=== PATIENT | male | born 1965 | race Caucasian/White ===

== ENCOUNTER 2019-06-04 11:38 | Emergency (ER) | payer MEDICAID ==
[~2019-06-04] VITALS: Ht 177.8 cm; Wt 115.0 kg
[~2019-06-04 11:38] MED LIST: RANI-366 PO
[2019-06-04 11:54] VITALS: BP 142/88
== END 2019-06-04 14:35 | disposition home or self-care (01) ==
LOC: ER 11:39
DX: S30.0XXA Contusion of lower back and pelvis, initial encounter (principal); M53.3 Sacrococcygeal disorders, not elsewhere classified; J44.9 Chronic obstructive pulmonary disease, unspecified; F41.9 Anxiety disorder, unspecified; F10.99 Alcohol use, unspecified with unspecified alcohol-induced disorder; F12.90 Cannabis use, unspecified, uncomplicated; Z90.49 Acquired absence of other specified parts of digestive tract; Z79.899 Other long term (current) drug therapy; V00.311A Fall from snowboard, initial encounter; Y93.23 Activity, snow (alpine) (downhill) skiing, snowboarding, sledding, tobogganing and snow tubing; Y92.89 Other specified places as the place of occurrence of the external cause; Y99.8 Other external cause status; Y90.9 Presence of alcohol in blood, level not specified
CPT/HCPCS: 72220; 99284

== ENCOUNTER 2019-06-19 15:20 | Emergency (ER) | payer MEDICAID ==
[~2019-06-19] VITALS: Ht 177.8 cm; Wt 106.3 kg
[~2019-06-19 15:20] MED LIST changes: +LIDOcaine 1% W/epiNEPHrine 1:100,000 20ml vial ONE
[2019-06-19 15:41] VITALS: BP 138/99
== END 2019-06-19 17:27 | disposition home or self-care (01) ==
LOC: ER 15:20
DX: S61.213A Laceration without foreign body of left middle finger without damage to nail, initial encounter (principal); J44.9 Chronic obstructive pulmonary disease, unspecified; F41.9 Anxiety disorder, unspecified; F10.99 Alcohol use, unspecified with unspecified alcohol-induced disorder; F12.90 Cannabis use, unspecified, uncomplicated; Z98.890 Other specified postprocedural states; Z90.49 Acquired absence of other specified parts of digestive tract; W26.8XXA Contact with other sharp object(s), not elsewhere classified, initial encounter; Y93.89 Activity, other specified; Y92.89 Other specified places as the place of occurrence of the external cause; Y99.8 Other external cause status; Y90.9 Presence of alcohol in blood, level not specified
CPT/HCPCS: 12001; 99283

== ENCOUNTER 2020-09-16 16:12 | Emergency (ER) | payer MEDICAID ==
[~2020-09-16] VITALS: Ht 177.8 cm; Wt 85.7 kg
[~2020-09-16 16:12] MED LIST changes: -LIDOcaine 1% W/epiNEPHrine 1:100,000 20ml vial ONE
[2020-09-16 18:30] LABS: EOSINOPHILS # (AUTO) 0.8 X10'3 (0-0.9); LYMPHOCYTES # (AUTO) 2.6 X10'3 (1.1-4.8); MEAN PLATELET VOLUME 7.4 FL (7.4-10.4); MONOCYTES # (AUTO) 0.6 X10'3 (0-0.9); NEUTROPHILS # (AUTO) 3.4 X10'3 (1.8-7.7)
[2020-09-16 18:33] LABS: BASOPHILS # (AUTO) 0.1 X10'3 (0-0.2); BASOPHILS % (AUTO) 1.8 % (0-1); EOSINOPHILS % (AUTO) 10.9 % (0-6); HEMATOCRIT 44.8 % (42.0-52.0); LYMPHOCYTES % (AUTO) 35.1 % (21-51); MEAN CORPUSCULAR HEMOGLOBIN 30.1 PG (27.0-31.0); MEAN CORPUSCULAR HGB CONC 33.4 g/dL (33.0-36.5); MEAN CORPUSCULAR VOLUME 90.2 FL (78-98); MONOCYTES % (AUTO) 7.3 % (2-12); NEUTROPHILS % (AUTO) 44.9 % (42-75); PLATELET COUNT 305 X10'3 (140-440); RED BLOOD COUNT 4.96 X10'6 (4.70-6.10); RED CELL DISTRIBUTION WIDTH 13.6 % (11.5-14.5); WHITE BLOOD COUNT 7.5 X10'3 (4.5-11.0)
[2020-09-16 18:45] LABS: ALANINE AMINOTRANSFERASE 36 U/L (12-78); ALBUMIN 3.5 G/DL (3.4-5.0); ALKALINE PHOSPHATASE 77 IU/L (46-116); ANION GAP 9 (8-16); ASPARTATE AMINO TRANSFERASE 19 U/L (10-37); BILIRUBIN,TOTAL 0.2 MG/DL (0.1-1.0); BLOOD UREA NITROGEN 15 MG/DL (7-18); CHLORIDE 106 MMOL/L (99-107); CREATININE 0.88 MG/DL (0.60-1.10); GLUCOSE 94 MG/DL (70-104); POTASSIUM 3.5 MMOL/L (3.5-5.1); SODIUM 144 MMOL/L (135-145); TOTAL CARBON DIOXIDE 28.7 MMOL/L (24-32); TOTAL PROTEIN 7.1 G/DL (6.4-8.2); eGFR > 90 ML/MIN
[2020-09-16] MEDS ORDERED: predniSONE 20 mg tablet PO ONE (19:15)
[2020-09-16] MEDS ORDERED: BENZ-16 PO (20:10)
[2020-09-16] MEDS ORDERED: ALBU8HFA PO (20:10)
[2020-09-16] MEDS ORDERED: PRED20TA PO (20:10)
[2020-09-16] MEDS ORDERED: AZIT-72 PO (20:10)
[2020-09-16 20:53] VITALS: BP 124/86
== END 2020-09-16 20:34 | disposition home or self-care (01) ==
LOC: ER 16:13
DX: J20.9 Acute bronchitis, unspecified (principal); J44.9 Chronic obstructive pulmonary disease, unspecified; Z20.822 Contact with and (suspected) exposure to COVID-19; F41.9 Anxiety disorder, unspecified; F12.90 Cannabis use, unspecified, uncomplicated; Z90.49 Acquired absence of other specified parts of digestive tract; Z87.891 Personal history of nicotine dependence; Z72.89 Other problems related to lifestyle; Z79.899 Other long term (current) drug therapy
CPT/HCPCS: 36415; 71046; 80053; 83880; 85025; 87635; 93005; 99285; C9803; J7512

== ENCOUNTER 2020-09-30 15:09 | Emergency (ER) | payer MEDICAID ==
[~2020-09-30] VITALS: Ht 200.7 cm; Wt 86.8 kg
[~2020-09-30 15:09] MED LIST changes: +ALBU8HFA PO
[2020-09-30 15:20] VITALS: BP 139/91
[2020-09-30] MEDS ORDERED: ketorolac tromethamine 15mg/ml inj. IM ONE (15:55)
[2020-09-30] MEDS ORDERED: orphenadrine citrate 60mg/2ml inj. IM ONE (15:55)
[2020-09-30] MEDS ORDERED: ACET-2006 PO (16:25)
[2020-09-30] MEDS ORDERED: IBUP-1985 PO (16:25)
== END 2020-09-30 16:41 | disposition home or self-care (01) ==
LOC: ER 15:10
DX: S33.5XXA Sprain of ligaments of lumbar spine, initial encounter (principal); J44.9 Chronic obstructive pulmonary disease, unspecified; G89.29 Other chronic pain; F12.90 Cannabis use, unspecified, uncomplicated; Z87.01 Personal history of pneumonia (recurrent); Z90.49 Acquired absence of other specified parts of digestive tract; Z79.899 Other long term (current) drug therapy; Z87.448 Personal history of other diseases of urinary system; X50.9XXA Other and unspecified overexertion or strenuous movements or postures, initial encounter; Y93.89 Activity, other specified; Y92.89 Other specified places as the place of occurrence of the external cause; Y99.8 Other external cause status
CPT/HCPCS: 96372; 99284; J1885; J2360

== ENCOUNTER 2021-02-04 12:02 | Emergency (ER) | payer MEDICAID ==
[~2021-02-04] VITALS: Ht 177.8 cm; Wt 93.2 kg
[~2021-02-04 12:02] MED LIST changes: -ALBU8HFA PO; +IBUP-1985 PO
[2021-02-04 12:34] VITALS: BP 139/82
[2021-02-04] MEDS ORDERED: IBUP-1984 PO (12:37)
[2021-02-04] MEDS ORDERED: CYCL-1 PO (12:37)
== END 2021-02-04 12:50 | disposition home or self-care (01) ==
LOC: ER 12:08
DX: M54.5 Low back pain (principal); J44.9 Chronic obstructive pulmonary disease, unspecified; G89.29 Other chronic pain; F41.9 Anxiety disorder, unspecified; F12.90 Cannabis use, unspecified, uncomplicated; F19.90 Other psychoactive substance use, unspecified, uncomplicated; Z87.01 Personal history of pneumonia (recurrent); Z90.89 Acquired absence of other organs; Z90.49 Acquired absence of other specified parts of digestive tract; Z72.89 Other problems related to lifestyle; Z79.899 Other long term (current) drug therapy
CPT/HCPCS: 99283

== ENCOUNTER 2021-02-09 14:32 | Emergency (ER) | payer MEDICAID ==
[~2021-02-09] VITALS: Ht 177.8 cm; Wt 93.2 kg
[~2021-02-09 14:32] MED LIST changes: +CYCL-1 PO; +IBUP-1984 PO
--- NOTE | 2021-02-09 15:24 | NUR ---
PT AWAITING ROOM IN AMBULANCE, UNTIL ISO ROOM AVAILABLE, TRIAGE DONE NOW
[2021-02-09 15:25] VITALS: BP 141/89
[2021-02-09] MEDS ORDERED: ondansetron/PF 4mg/2ml inj IV ONE (16:05)
[2021-02-09] MEDS ORDERED: normal saline 1000ML IV soln IVB ONE (16:05)
[2021-02-09] MEDS ORDERED: acetaminophen 325mg tablet PO ONE (16:30)
[2021-02-09 17:02] LABS: BASOPHILS % (AUTO) 0.9 % (0-1); EOSINOPHILS % (AUTO) 0.1 % (0-6); HEMATOCRIT 40.7 % (42.0-52.0); HEMOGLOBIN 14.1 g/dl (14.0-17.9); LYMPHOCYTES # (AUTO) 0.6 X10'3 (1.1-4.8); LYMPHOCYTES % (AUTO) 17.8 % (21-51); MEAN CORPUSCULAR HEMOGLOBIN 30.3 PG (27.0-31.0); MEAN CORPUSCULAR HGB CONC 34.6 g/dL (33.0-36.5); MEAN CORPUSCULAR VOLUME 87.5 FL (78-98); MEAN PLATELET VOLUME 7.6 FL (7.4-10.4); MONOCYTES # (AUTO) 0.2 X10'3 (0-0.9); MONOCYTES % (AUTO) 6.1 % (2-12); NEUTROPHILS # (AUTO) 2.7 X10'3 (1.8-7.7); NEUTROPHILS % (AUTO) 75.1 % (42-75); PLATELET COUNT 179 X10'3 (140-440); RED BLOOD COUNT 4.65 X10'6 (4.70-6.10); RED CELL DISTRIBUTION WIDTH 12.6 % (11.5-14.5); WHITE BLOOD COUNT 3.6 X10'3 (4.5-11.0)
[2021-02-09 17:16] LABS: ALANINE AMINOTRANSFERASE 50 U/L (12-78); ALBUMIN 2.8 G/DL (3.4-5.0); ALBUMIN/GLOBULIN RATIO 0.8 (1.1-1.5); ALKALINE PHOSPHATASE 81 IU/L (46-116); ANION GAP 6 (8-16); ASPARTATE AMINO TRANSFERASE 48 U/L (10-37); BILIRUBIN,TOTAL 0.3 MG/DL (0.1-1.0); BLOOD UREA NITROGEN 9 MG/DL (7-18); BUN/CREATININE RATIO 9.3 (5.4-32.0); CALCIUM 7.8 MG/DL (8.5-10.1); CHLORIDE 101 MMOL/L (99-107); CREATININE 0.97 MG/DL (0.60-1.10); GLUCOSE 114 MG/DL (70-104); POTASSIUM 3.3 MMOL/L (3.5-5.1); SODIUM 138 MMOL/L (135-145); TOTAL CARBON DIOXIDE 31.2 MMOL/L (24-32); TOTAL PROTEIN 6.3 G/DL (6.4-8.2); eGFR 81 ML/MIN
[2021-02-09] MEDS ORDERED: potassium Cl 20 mEq SR tablet PO ONE (18:05)
== END 2021-02-09 19:10 | disposition home or self-care (01) ==
LOC: ER 14:32
DX: U07.1 COVID-19 (principal); J44.9 Chronic obstructive pulmonary disease, unspecified; G89.29 Other chronic pain; F41.9 Anxiety disorder, unspecified; F12.90 Cannabis use, unspecified, uncomplicated; Z90.49 Acquired absence of other specified parts of digestive tract; Z72.89 Other problems related to lifestyle; Z79.899 Other long term (current) drug therapy
CPT/HCPCS: 36415; 71045; 80053; 85025; 87635; 96361; 96374; 99284; C9803; J2405; J7030

== ENCOUNTER 2021-11-05 16:08 | Emergency (ER) | payer MEDICAID ==
[~2021-11-05] VITALS: Ht 177.8 cm; Wt 100.0 kg
[~2021-11-05 16:08] MED LIST changes: -IBUP-1984 PO
[2021-11-05 16:31] VITALS: BP 148/100
== END 2021-11-05 17:39 | disposition home or self-care (01) ==
LOC: ER 16:08
DX: M70.21 Olecranon bursitis, right elbow (principal); J44.9 Chronic obstructive pulmonary disease, unspecified; G89.29 Other chronic pain; M54.9 Dorsalgia, unspecified; F41.9 Anxiety disorder, unspecified; F12.10 Cannabis abuse, uncomplicated; Y93.89 Activity, other specified; Z79.899 Other long term (current) drug therapy
CPT/HCPCS: 99282

== ENCOUNTER 2022-01-14 05:36 | Emergency (ER) | payer MEDICAID ==
[~2022-01-14] VITALS: Ht 177.8 cm; Wt 88.2 kg
[2022-01-14 05:38] VITALS: BP 125/88
[2022-01-14] MEDS: LIDOcaine 1% 30ml preserv. free vial SQ STA (06:45)
[2022-01-14] MEDS ORDERED: CEPH-585 PO ×3 (07:13→07:28)
== END 2022-01-14 07:31 | disposition home or self-care (01) ==
LOC: ER 05:36
DX: M70.21 Olecranon bursitis, right elbow (principal); J44.9 Chronic obstructive pulmonary disease, unspecified; G89.29 Other chronic pain; F41.9 Anxiety disorder, unspecified; F17.200 Nicotine dependence, unspecified, uncomplicated; F12.90 Cannabis use, unspecified, uncomplicated; F19.90 Other psychoactive substance use, unspecified, uncomplicated; Z87.01 Personal history of pneumonia (recurrent); Z90.89 Acquired absence of other organs; Z90.79 Acquired absence of other genital organ(s); Z72.89 Other problems related to lifestyle; Z79.2 Long term (current) use of antibiotics; Z79.899 Other long term (current) drug therapy
CPT/HCPCS: 10160; 99284; A6449

== ENCOUNTER 2023-01-23 13:10 | Emergency (ER) | payer MEDICAID ==
[~2023-01-23] VITALS: Ht 177.8 cm; Wt 93.2 kg
[~2023-01-23 13:10] MED LIST changes: +CEPH-585 PO
[2023-01-23 13:38] VITALS: BP 153/96; PULSE 83; RESP 18; TEMP 98; O2SAT 96
[2023-01-23] MEDS ORDERED: ERYT1OIN6 LEFTEYE ×3 (14:44→15:01)
== END 2023-01-23 15:13 | disposition home or self-care (01) ==
LOC: ER 13:10
DX: H10.89 Other conjunctivitis (principal); J44.9 Chronic obstructive pulmonary disease, unspecified; G89.29 Other chronic pain; F12.90 Cannabis use, unspecified, uncomplicated; Z90.49 Acquired absence of other specified parts of digestive tract; Z72.89 Other problems related to lifestyle; Z87.19 Personal history of other diseases of the digestive system; Z79.2 Long term (current) use of antibiotics; Z79.899 Other long term (current) drug therapy
CPT/HCPCS: 99283

== ENCOUNTER 2024-02-07 22:08 | Emergency (ER) | payer MEDICAID ==
[~2024-02-07] VITALS: Ht 177.8 cm; Wt 98.0 kg
[~2024-02-07 22:08] MED LIST changes: +ERYT1OIN6 LEFTEYE
[2024-02-07 22:13] VITALS: BP 162/104; PULSE 77; RESP 16; TEMP 98.1; O2SAT 97
[2024-02-07] MEDS ORDERED: SULF1TAB49 PO (22:43)
== END 2024-02-07 22:50 | disposition home or self-care (01) ==
LOC: ER 22:09
DX: S31.119A Laceration without foreign body of abdominal wall, unspecified quadrant without penetration into peritoneal cavity, initial encounter (principal); J44.9 Chronic obstructive pulmonary disease, unspecified; F41.9 Anxiety disorder, unspecified; F12.90 Cannabis use, unspecified, uncomplicated; Z79.2 Long term (current) use of antibiotics; Z79.1 Long term (current) use of non-steroidal anti-inflammatories (NSAID); Z79.899 Other long term (current) drug therapy; Z98.890 Other specified postprocedural states; Z90.49 Acquired absence of other specified parts of digestive tract; W45.8XXA Other foreign body or object entering through skin, initial encounter; Y93.89 Activity, other specified; Y92.89 Other specified places as the place of occurrence of the external cause; Y99.8 Other external cause status
CPT/HCPCS: 99283

== ENCOUNTER 2024-04-08 07:39 | Emergency (ER) | payer MEDICAID ==
[~2024-04-08] VITALS: Ht 177.8 cm; Wt 98.7 kg
[2024-04-08 07:43] VITALS: BP 160/103; PULSE 84; RESP 16; O2SAT 97
[2024-04-08] MEDS ORDERED: SULF1TAB49 PO (08:08)
[2024-04-08 08:13] VITALS: TEMP 98.1
== END 2024-04-08 08:14 | disposition home or self-care (01) ==
LOC: ER 07:39
DX: L03.032 Cellulitis of left toe (principal); J44.9 Chronic obstructive pulmonary disease, unspecified; G89.29 Other chronic pain; M54.9 Dorsalgia, unspecified; F41.9 Anxiety disorder, unspecified; F12.90 Cannabis use, unspecified, uncomplicated; F19.90 Other psychoactive substance use, unspecified, uncomplicated; Z90.49 Acquired absence of other specified parts of digestive tract; Z72.89 Other problems related to lifestyle; Z79.1 Long term (current) use of non-steroidal anti-inflammatories (NSAID); Z79.2 Long term (current) use of antibiotics; Z79.899 Other long term (current) drug therapy
CPT/HCPCS: 99283

== ENCOUNTER 2024-04-09 17:49 | Inpatient (IN) | payer MEDICAID ==
[~2024-04-09] VITALS: Ht 177.8 cm; Wt 97.1 kg
[~2024-04-09 17:49] MED LIST changes: +SULF1TAB49 PO
[2024-04-09 21:24] LABS: BASOPHILS # (AUTO) 0.1 X10'3 (0-0.2); BASOPHILS % (AUTO) 0.6 % (0-1); EOSINOPHILS # (AUTO) 0.1 X10'3 (0-0.9); EOSINOPHILS % (AUTO) 0.7 % (0-6); HEMATOCRIT 43.9 % (42.0-52.0); HEMOGLOBIN 14.9 g/dl (14.0-17.9); MEAN CORPUSCULAR HEMOGLOBIN 29.6 PG (27.0-31.0); MEAN CORPUSCULAR HGB CONC 33.9 g/dL (33.0-36.5); MEAN CORPUSCULAR VOLUME 87.3 FL (78-98); MEAN PLATELET VOLUME 6.9 FL (7.4-10.4); MONOCYTES # (AUTO) 1.1 X10'3 (0-0.9); MONOCYTES % (AUTO) 8.9 % (2-12); NEUTROPHILS # (AUTO) 9.4 X10'3 (1.8-7.7); NEUTROPHILS % (AUTO) 73.8 % (42-75); PLATELET COUNT 305 X10'3 (140-440); RED BLOOD COUNT 5.03 X10'6 (4.70-6.10); WHITE BLOOD COUNT 12.7 X10'3 (4.5-11.0)
[2024-04-09 21:35] LABS: MAGNESIUM 2.2 MG/DL (1.5-2.4)
[2024-04-09] MEDS: VANCOMYCIN/H2O 1.5g/300mL PB 300 ML IV ONE (21:46)
[2024-04-09] MEDS: piperacillin/tazo 3.375gm/50ml 50 ML IV SCH (22:42)
[2024-04-09 23:13] LABS: ALANINE AMINOTRANSFERASE 32 U/L (12-78); ALBUMIN 3.6 G/DL (3.4-5.0); ALBUMIN/GLOBULIN RATIO 0.9 (1.1-1.5); ALKALINE PHOSPHATASE 88 IU/L (46-116); ANION GAP 10 (8-16); ASPARTATE AMINO TRANSFERASE 25 U/L (10-37); BILIRUBIN,TOTAL 0.7 MG/DL (0.1-1.0); BLOOD UREA NITROGEN 13 MG/DL (7-18); BUN/CREATININE RATIO 9.5 (10.0-20.0); CHLORIDE 98 MMOL/L (99-107); CREATININE 1.37 MG/DL (0.60-1.10); GLUCOSE 113 MG/DL (70-104); POTASSIUM 3.5 MMOL/L (3.5-5.1); SODIUM 136 MMOL/L (135-145); TOTAL CARBON DIOXIDE 27.8 MMOL/L (24-32); TOTAL PROTEIN 7.8 G/DL (6.4-8.2); eCRCL 62 ML/MIN; eGFR 54 ML/MIN
[2024-04-09] MEDS ORDERED: potassium Cl 20 mEq SR tablet PO PRN (23:20)
[2024-04-09] MEDS ORDERED: mag hydrox/Alum hydrox/simeth 30ml oral suspension PO PRN (23:20)
[2024-04-09] MEDS ORDERED: ondansetron/PF 4mg/2ml inj IV PRN (23:20)
[2024-04-09] MEDS ORDERED: magnesium Cl slow-release 64mg tablet PO PRN (23:20)
[2024-04-09] MEDS ORDERED: potassium Cl 40MEQ/1/2NS 520ml 520 ML IV PRN (23:20)
[2024-04-09] MEDS ORDERED: acetaminophen 325mg tablet PO PRN (23:20)
[2024-04-09] MEDS ORDERED: HYDROcodone/acetaminophen 5mg/325mg tablet PO PRN (23:20)
[2024-04-09] MEDS ORDERED: magnesium sulf-water 4G/100mL 100 ML IV PRN (23:20)
[2024-04-09] MEDS ORDERED: morphine 2 MG/ML inj. syringe IV PRN (23:20)
[2024-04-09] MEDS ORDERED: magnesium sulf-water 2g/50mL 50 ML IV PRN (23:20)
[2024-04-09] MEDS ORDERED: magnesium hydroxide 30ml (MOM) UD suspension PO PRN (23:20)
[2024-04-10 00:18] LABS: HEMOGLOBIN A1C 5.8 % (4.5-6.2)
[2024-04-10] MEDS: normal saline 1000ml 1,000 ML IV SCH (02:33)
[2024-04-10 02:38] LABS: BASOPHILS # (AUTO) 0.1 X10'3 (0-0.2); BASOPHILS % (AUTO) 0.5 % (0-1); EOSINOPHILS # (AUTO) 0.1 X10'3 (0-0.9); HEMATOCRIT 40.8 % (42.0-52.0); HEMOGLOBIN 13.9 g/dl (14.0-17.9); LYMPHOCYTES # (AUTO) 1.8 X10'3 (1.1-4.8); LYMPHOCYTES % (AUTO) 16.4 % (21-51); MEAN CORPUSCULAR VOLUME 88.3 FL (78-98); MEAN PLATELET VOLUME 6.9 FL (7.4-10.4); MONOCYTES # (AUTO) 0.9 X10'3 (0-0.9); MONOCYTES % (AUTO) 8.5 % (2-12); NEUTROPHILS # (AUTO) 8.1 X10'3 (1.8-7.7); NEUTROPHILS % (AUTO) 73.6 % (42-75); PLATELET COUNT 283 X10'3 (140-440); RED BLOOD COUNT 4.62 X10'6 (4.70-6.10); RED CELL DISTRIBUTION WIDTH 13.2 % (11.5-14.5)
[2024-04-10 03:07] LABS: ALBUMIN 2.9 G/DL (3.4-5.0); ANION GAP 7 (8-16); BLOOD UREA NITROGEN 13 MG/DL (7-18); BUN/CREATININE RATIO 9.8 (10.0-20.0); CALCIUM 8.8 MG/DL (8.5-10.1); CHLORIDE 103 MMOL/L (99-107); CHOL/HDL RATIO 3.7 (0.00-4.99); CHOLESTEROL 174 MG/DL (0-200); CREATININE 1.33 MG/DL (0.60-1.10); GLUCOSE 89 MG/DL (70-104); HDL CHOLESTEROL 47 MG/DL (35-60); LDL CHOLESTEROL 112 MG/DL (50-100); MAGNESIUM 2.3 MG/DL (1.5-2.4); POTASSIUM 3.3 MMOL/L (3.5-5.1); SODIUM 140 MMOL/L (135-145); TOTAL CARBON DIOXIDE 30.3 MMOL/L (24-32); TRIGLYCERIDES 109 MG/DL (20-135); eCRCL 64 ML/MIN; eGFR 56 ML/MIN
[2024-04-10] MEDS: piperacillin/tazo 4.5gm/100ml 100 ML IV SCH (05:59)
[2024-04-10 06:20] LABS: BILIRUBIN,URINE NEGATIVE (Neg); CLARITY,URINE CLEAR (Clear); COLOR,URINE YELLOW (Yellow); GLUCOSE, URINE NEGATIVE (Neg); KETONES,URINE NEGATIVE (Neg); LEUKOCYTE ESTERASE ,URINE NEGATIVE (Neg); NITRITES, URINE NEGATIVE (Neg); OCCULT BLOOD,URINE NEGATIVE (Neg); PROTEIN,URINE NEGATIVE (Neg)
[2024-04-10 06:26] LABS: UA COLLECTION TYPE CLN CATCH MIDSTREAM
[2024-04-10] MEDS: K and/or MAG REPLACEMENT MC SCH (08:00)
[2024-04-10] MEDS: docusate sod 100mg capsule PO SCH (08:00)
[2024-04-10] MEDS ORDERED: iohexol 300mg/ml 100ml inj. ONE (09:35)
[2024-04-10 10:00] VITALS: BP 124/70; PULSE 85; RESP 20; TEMP 97.5; O2SAT 96
[2024-04-10] MEDS: potassium Cl 20 mEq SR tablet PO PRN (10:22)
[2024-04-10] MEDS: heparin, porcine 5000 units/ml vial SQ SCH (10:23)
[2024-04-10] MEDS: CefTRIAXone/D5W-Rocephin 1gm 50 ML IV SCH (10:37)
[2024-04-10 18:00] VITALS: BP 114/82; PULSE 89; RESP 18; TEMP 98.2; O2SAT 99
[2024-04-10 22:00] VITALS: BP 142/95; PULSE 78; RESP 14; TEMP 98.2; O2SAT 99
[2024-04-11 03:24] LABS: BASOPHILS # (AUTO) 0.1 X10'3 (0-0.2); EOSINOPHILS # (AUTO) 0.2 X10'3 (0-0.9); EOSINOPHILS % (AUTO) 2.4 % (0-6); HEMATOCRIT 39.3 % (42.0-52.0); HEMOGLOBIN 13.3 g/dl (14.0-17.9); LYMPHOCYTES # (AUTO) 1.9 X10'3 (1.1-4.8); LYMPHOCYTES % (AUTO) 24.7 % (21-51); MEAN CORPUSCULAR HEMOGLOBIN 29.6 PG (27.0-31.0); MEAN CORPUSCULAR HGB CONC 33.9 g/dL (33.0-36.5); MEAN CORPUSCULAR VOLUME 87.4 FL (78-98); MEAN PLATELET VOLUME 6.6 FL (7.4-10.4); MONOCYTES # (AUTO) 0.8 X10'3 (0-0.9); MONOCYTES % (AUTO) 10.9 % (2-12); NEUTROPHILS # (AUTO) 4.7 X10'3 (1.8-7.7); PLATELET COUNT 257 X10'3 (140-440); WHITE BLOOD COUNT 7.7 X10'3 (4.5-11.0)
[2024-04-11 03:34] LABS: ALBUMIN 2.8 G/DL (3.4-5.0); ANION GAP 6 (8-16); BLOOD UREA NITROGEN 13 MG/DL (7-18); BUN/CREATININE RATIO 11.3 (10.0-20.0); CALCIUM 8.8 MG/DL (8.5-10.1); CHLORIDE 105 MMOL/L (99-107); CREATININE 1.15 MG/DL (0.60-1.10); GLUCOSE 129 MG/DL (70-104); POTASSIUM 4.4 MMOL/L (3.5-5.1); SODIUM 140 MMOL/L (135-145); TOTAL CARBON DIOXIDE 28.6 MMOL/L (24-32); eCRCL 74 ML/MIN; eGFR 66 ML/MIN
[2024-04-11 06:00] VITALS: BP 104/71; PULSE 85; RESP 13; TEMP 97.8; O2SAT 97
[2024-04-11 08:00] VITALS: RESP 13; O2SAT 97
[2024-04-11 15:48] LABS: D-DIMER 0.52 MG/L FEU (0-0.50)
[2024-04-11] MEDS ORDERED: CEFD300C3 PO (16:40)
[2024-04-11] MEDS ORDERED: LACT1CAP76 PO (16:40)
[2024-04-12 08:15] LABS: HBSAG SCREEN Negative (Negative); HEP B CORE AB, IGM Negative (Negative); HEP B CORE AB, TOT Negative (Negative); HEP B SURF AB Non Reactive (.)
== END 2024-04-11 17:45 | disposition home or self-care (01) | DRG 383 ==
LOC: ER 17:50 → ED HOLD 23:25 → EDBEDREQ 04-10 05:58 → SUR 3N 04-10 08:00
PROVIDERS: ADMIT Internal Medicine Critical Care Medicine; ATTEND Internal Medicine
PROC: BQ2 Imaging, Non-Axial Lower Bones, Computerized Tomography (CT Scan) (ICD-10-PCS; principal; 2024-04-10)
DX: L03.116 Cellulitis of left lower limb (principal); N17.0 Acute kidney failure with tubular necrosis; F41.9 Anxiety disorder, unspecified; J44.9 Chronic obstructive pulmonary disease, unspecified; M54.9 Dorsalgia, unspecified; G89.29 Other chronic pain; Z90.49 Acquired absence of other specified parts of digestive tract
CPT/HCPCS: 36415; 71045; 73630; 73701; 80048; 80053; 80061; 81003; 82948; 83036; 83605; 83735; 84145; 85025; 85379; 85651; 86704; 86705; 86706; 87040; 87081; 87340; 93005; 93971; 96365; 96367; 97161; 97530; 99285; A6446; A6449; G0378; J0696; J1644; J2543; J3372; J7030; Q9967